=== PATIENT | female | born 1950 | race African-American/Black ===

== ENCOUNTER 2018-12-30 17:21 | Emergency (ER) | payer MEDICARE ==
--- NOTE | 2018-12-30 17:34 | Emergency Department Report ---
Blank Doc - Documentation Documentation: This is a 68-year-old female that presents with chest pain with SOB. This initial assessment/diagnostic orders/clinical plan/treatment(s) is/are subject to change based on patient's health status, clinical progression and re- assessment by fellow clinical providers in the ED. Further treatment and workup at subsequent clinical providers discretion. Patient/guardians urged not to elope from the ED as their condition may be serious if not clinically assessed and managed. Initial orders include: 1- Patient sent to MAIN ED for further evaluation and treatment 2- labs 3- EKG 4- CXR
[2018-12-30 18:01] LABS: Basophils % (Auto) 0.6 % (0.0-1.8); Eosinophils # (Auto) 0.3 K/mm3 (0.0-0.4); Eosinophils % (Auto) 4.6 % (0.0-4.3); Hematocrit 40.1 % (30.3-42.9); Hemoglobin 13.2 gm/dl (10.1-14.3); Lymphocytes # (Auto) 2.4 K/mm3 (1.2-5.4); Mean Corpuscular HGB Conc 33 % (30-34); Mean Corpuscular Volume 87 fl (79-97); Monocytes # (Auto) 0.6 K/mm3 (0.0-0.8); Monocytes % (Auto) 9.6 % (0.0-7.3); Platelet Count 317 K/mm3 (140-440); Red Cell Distribution Width 13.8 % (13.2-15.2)
[2018-12-30 18:27] LABS: INR 0.87 (0.87-1.13)
[2018-12-30 18:36] LABS: BUN/Creatinine Ratio 23; Blood Urea Nitrogen 18 mg/dL (7-17); Calcium 9.5 mg/dL (8.4-10.2); Hemolysis Index 66
--- NOTE | 2018-12-30 19:19 | XRay Report ---
PROCEDURE: XR CHEST ROUTINE 2V TECHNIQUE: PA and lateral chest radiographs were obtained. HISTORY: Chest Pain COMPARISONS: None. FINDINGS: Heart: Normal. Mediastinum/Vessels: Normal. Lungs/Pleural space: Normal. Bony thorax: No acute osseous abnormality. IMPRESSION: Normal examination. This document is electronically signed by Boni Gilbert MD., Dec 30 2018 07:17:19 PM ET
--- NOTE | 2018-12-30 20:29 | Emergency Department Report ---
ED General Adult HPI - General Chief complaint: Chest Pain Stated complaint: SOB/CHEST/BACK PAIN Time Seen by Provider: 12/30/18 17:33 Source: patient Mode of arrival: Ambulatory Limitations: No Limitations - History of Present Illness Initial comments: 68-year-old female with a history of diabetes presents with a complaint of chest pain. Patient states chest pain is in her upper chest. Patient states the chest pain radiates to the back as well. Patient complains of dizziness. Patient complains of shortness of breath since 1 PM as well. Patient denies any prior history of coronary disease. Patient denies any history of PE or DVT. Patient denies any trauma to the chest. Severity scale (0 -10): 5 - Related Data Previous Rx's Medication Instructions Recorded Last Taken Type HYDROcodone/APAP 5-325 [[place] 2 each PO Q6HR PRN #30 tablet 05/10/14 Unknown Rx 5/325] Acetaminophen/Codeine [Tylenol #3] 1 tab PO QHS #10 tablet 01/29/15 Unknown Rx Ibuprofen [Motrin] 800 mg PO BID PRN #30 tablet 01/29/15 Unknown Rx Acetaminophen/Codeine [Tylenol #3] 1 tab PO Q6H PRN #15 tab 03/18/15 Unknown Rx Ondansetron [Zofran ODT TAB] 4 mg PO Q8HR #12 tab.rapdis 03/18/15 Unknown Rx Allergies Allergy/AdvReac Type Severity Reaction Status Date / Time No Known Allergies Allergy Verified 03/18/15 10:38 ED Review of Systems ROS: Stated complaint: SOB/CHEST/BACK PAIN Other details as noted in HPI Constitutional: denies: chills, fever Eyes: denies: eye pain, eye discharge, vision change ENT: denies: ear pain, throat pain Respiratory: denies: cough, shortness of breath, wheezing Cardiovascular: chest pain Endocrine: no symptoms reported Gastrointestinal: denies: abdominal pain, nausea, diarrhea Genitourinary: denies: urgency, dysuria, discharge Musculoskeletal: denies: back pain, joint swelling, arthralgia Skin: denies: rash, lesions Neurological: denies: headache, weakness, paresthesias Psychiatric: denies: anxiety, depression Hematological/Lymphatic: denies: easy bleeding, easy bruising ED Past Medical Hx - Past Medical History Previous Medical History?: Yes Hx Diabetes: Yes ([id number]) Hx GERD: Yes Hx Psychiatric Treatment: Yes (DEPRESSION/ ANXIETY) - Surgical History Past Surgical History?: Yes Additional Surgical History: BILATERAL CATARACTS REMOVED - Social History Smoking Status: Never Smoker Substance Use Type: None - Medications Home Medications: Home Medications Medication Instructions Recorded Confirmed Last Taken Type HYDROcodone/APAP 5-325 [[place] 2 each PO Q6HR PRN #30 tablet 05/10/14 Unknown Rx 5/325] Acetaminophen/Codeine [Tylenol #3] 1 tab PO QHS #10 tablet 01/29/15 Unknown Rx Ibuprofen [Motrin] 800 mg PO BID PRN #30 tablet 01/29/15 Unknown Rx Acetaminophen/Codeine [Tylenol #3] 1 tab PO Q6H PRN #15 tab 03/18/15 Unknown Rx Ondansetron [Zofran ODT TAB] 4 mg PO Q8HR #12 tab.rapdis 03/18/15 Unknown Rx ED Physical Exam - General Limitations: No Limitations General appearance: alert, in no apparent distress - Head Head exam: Present: atraumatic, normocephalic - Eye Eye exam: Present: normal appearance - ENT ENT exam: Present: mucous membranes moist - Neck Neck exam: Present: normal inspection - Respiratory Respiratory exam: Present: normal lung sounds bilaterally. Absent: respiratory distress - Cardiovascular Cardiovascular Exam: Present: regular rate, normal rhythm. Absent: systolic murmur, diastolic murmur, rubs, gallop - GI/Abdominal GI/Abdominal exam: Present: soft, normal bowel sounds - Extremities Exam Extremities exam: Present: normal inspection - Back Exam Back exam: Present: normal inspection - Neurological Exam Neurological exam: Present: alert, oriented X3 - Psychiatric Psychiatric exam: Present: normal affect, normal mood - Skin Skin exam: Present: warm, dry, intact, normal color. Absent: rash ED Course Vital Signs 12/30/18 12/30/18 12/30/18 17:33 20:27 21:01 Temperature 98.6 F 98.1 F Pulse Rate 74 76 66 Respiratory 20 19 10 L Rate Blood Pressure 156/66 156/47 Blood Pressure 156/47 [Left] O2 Sat by Pulse 98 100 99 Oximetry 12/30/18 22:00 Temperature Pulse Rate 63 Respiratory 10 L Rate Blood Pressure 142/55 Blood Pressure [Left] O2 Sat by Pulse 99 Oximetry ED Medical Decision Making - Lab Data Result diagrams: 12/30/18 17:49 12/30/18 17:49 - EKG Data EKG shows normal: sinus rhythm Rate: normal - EKG Data When compared to previous EKG there are: no significant change - Medical Decision Making The patient's chest pain radiating to her back as well as the acute onset patient is alert to have a CT dissection protocol. Patient states that her pain has improved. Patient states she does not want this study. Patient made aware of the risk of dissection potentially leading to . Please say she is aware P patient is oriented to person place and time and has good decision- making capacity. Patient will leave AGAINST MEDICAL ADVICE. - Differential Diagnosis STEMI; NSTEMI; Anemia; Dehydration; Electrolyte Abnormality; Critical care attestation.: If time is entered above; I have spent that time in minutes in the direct care of this critically ill patient, excluding procedure time. ED Disposition Clinical Impression: Chest pain Disposition: [id number] LEFT AGAINST MED ADVICE Is pt being admited?: No Does the pt Need Aspirin: No Condition: Stable Instructions: Chest Pain (ED) Referrals: PRIMARY CARE, [Primary Care Provider] - 3-5 Days Forms: AMA Form Time of Disposition: 00:23 Print Language: KAZAKH
[2018-12-31 00:45] VITALS: BP 133/53
== END 2018-12-31 00:47 | disposition left against medical advice (07) ==
LOC: ED 17:21
DX: R07.9 Chest pain, unspecified (principal); R42 Dizziness and giddiness
CPT/HCPCS: 36415; 71046; 80048; 84484; 85025; 85610; 85730; 93005; 93010

== ENCOUNTER 2021-01-07 17:09 | Inpatient (IN) | payer MEDICARE ==
--- NOTE | 2021-01-07 18:23 | Event Note ---
ED Screening Note Date of service: 01/07/21 Time: 18:20 ED Screening Note: 77-year-old female was brought to the ER today by her daughter with complaints of abdominal pain and constipation. Daughter reports that patient has been producing only very small amount of hard stools and today when she wiped after trying have a bowel movement she noticed that there was blood in the stool. She reports associated bowel distention and generalized fatigue. She states that patient had a routine colonoscopy done December 22 with some polyps removed. Patient vital signs shows tachycardia with a heart rate of 124 and a low-grade temperature of 100.2 Daughter denies any fever at home. She denies any URI symptoms or significant cough and denies any UTI symptoms. This initial assessment/diagnostic orders/clinical plan/treatment(s) is/are subject to change based on patients health status, clinical progression and re- assessment by fellow clinical providers in the ED. Further treatment and workup at subsequent clinical providers discretion. Patient/guardian urged not to elope from the ED as their condition may be serious if not clinically assessed and managed. Initial orders include: Abdominal pain order set blood cultures and lactic acid
--- NOTE | 2021-01-07 19:02 | XRay Report ---
CHEST 2 VIEWS INDICATION / CLINICAL INFORMATION: fever. COMPARISON: Chest x-ray 12/30/2018 FINDINGS: SUPPORT DEVICES: None. HEART / MEDIASTINUM: No significant abnormality. LUNGS / PLEURA: No significant pulmonary or pleural abnormality. No pneumothorax. ADDITIONAL FINDINGS: No significant additional findings. IMPRESSION: 1. No acute findings. Signer Name: Srinivas Perez MD Signed: 01/07/2021 6:58 PM Workstation Name: [id number]
[2021-01-07 19:16] LABS: Hematocrit 44.7 % (30.3-42.9); Hemoglobin 14.8 gm/dl (10.1-14.3); Mean Corpuscular HGB Conc 33 % (30-34); Mean Corpuscular Volume 89 fl (79-97); Platelet Count 322 K/mm3 (140-440); Red Blood Count 5.06 M/mm3 (3.65-5.03); Red Cell Distribution Width 13.3 % (13.2-15.2)
[2021-01-07 19:17] LABS: Bilirubin,Urine NEG (Negative); Blood,Urine MOD (Negative); Color,Urine Yellow (Yellow); Mucus,Urine FEW /HPF; Urobilinogen,Urine < 2.0 mg/dL (<2.0)
[2021-01-07 19:28] LABS: INR 0.96 (0.87-1.13)
[2021-01-07 19:37] LABS: Alanine Aminotransferase 13 units/L (7-56); Albumin 4.6 g/dL (3.9-5); Blood Urea Nitrogen 17 mg/dL (7-17); Calcium 9.1 mg/dL (8.4-10.2); Hemolysis Index 3
[2021-01-07] MEDS ORDERED: PIPERACIL/TAZOBACTA 4.5/NS 100 4.5 GM/100 ML VIAL IV ONE ×2 (19:37→22:40)
[2021-01-07] MEDS ORDERED: SODIUM CHLORIDE 0.9% 1000 ML IV SOLN IV ONE ×2 (19:37→22:45)
[2021-01-07 19:38] LABS: BUN/Creatinine Ratio 24; Bilirubin,Direct < 0.2 mg/dL (0-0.2)
--- NOTE | 2021-01-07 19:42 | Cat Scan Report ---
CT CHEST, ABDOMEN, AND PELVIS WITHOUT CONTRAST INDICATION: fever abdominal pain. COMPARISON: None available. TECHNIQUE: All CT scans at this location are performed using CT dose reduction for ALARA by means of automated e xposure control. FINDINGS -- CHEST: Heart: Normal. Thoracic Aorta: No acute abnormality. Mediastinum and Anali: No significant abnormality. Lungs: No acute air space or interstitial disease. Pleura: No significant pleural effusion. No pneumothorax. Airways: No significant abnormality. Additional Findings: 1.7 cm left thyroid cystic nodule FINDINGS -- ABDOMEN: Liver: Normal. Gallbladder: Surgically absent Bile Ducts: Normal. Pancreas: Normal. Spleen: Normal. Adrenals: Normal. Right Kidney and Proximal Ureter: Normal. Left Kidney and Proximal Ureter: Normal. Stomach and Bowel: Moderate amount of solid stool throughout colon with fecal impaction, rectal wall thickening and mild perirectal inflammation characteristic for stercoral colitis Appendix: Normal Free Fluid: None. Lymph Nodes: No significant adenopathy. Aorta: No significant abnormality. IVC: Normal. Additional Findings: None. FINDINGS -- PELVIS: Urinary Bladder and Distal Ureters: Normal. Reproductive Organs: No acute abnormality. Appendix: Normal. Bowel: No acute abnormality. Free Fluid: None. Lymph Nodes: No significant adenopathy. Additional Findings: None. Skeletal System: Moderate degenerative changes thoracic and lumbar spine IMPRESSION: 1. Fecal impaction stercoral colitis Signer Name: Srinivas Perez MD Signed: 01/07/2021 7:38 PM Workstation Name: [id number]
[2021-01-07 20:38] LABS: Band Neutrophils # (Manual) 0.2 K/mm3; Total Cells Counted 100
[2021-01-07 20:39] LABS: Ovalocytes Rare; Platelet Estimate Consistent w Auto
--- NOTE | 2021-01-07 22:15 | Emergency Department Report ---
ED General Adult HPI - General Chief complaint: Abdominal Pain Stated complaint: CONSTIPATION, ABD PAIN, FATIGUE PUI?: No Time Seen by Provider: 01/07/21 22:15 Source: patient, family, RN notes reviewed, old records reviewed Mode of arrival: Ambulatory Limitations: Language Barrier - History of Present Illness Initial comments: The patient was evaluated in the emergency department for symptoms described in the history of present illness. He/she was evaluated in the context of the global COVID-19 pandemic, which necessitated consideration that the patient might be at risk for infection with the virus that causes COVID-19. Institutional protocols and algorithms that pertain to the evaluation of patients at risk for COVID-19 are in a state of rapid change based on information released by regulatory bodies including the CDC and federal and state organizations. These policies and algorithms were followed during the pat ient's care in the emergency department. Please note that these policies, procedures and recommendations changed on a rapid basis. During the history and physical examination, I am chaperoned and escorted by the charge nurse Morena Gill. Gastroenterology: Dr. Glen Booth; primary care doctor: Dr. 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 Patient is accompanied by her daughter, patient indicates that she would like marquita lockhart to provide history and translate. The patient is a 70-year-old Laotian speaking female, presenting to the ER with a complaint of abdominal pressure, intermittent bloody brown stool, diarrhea, sensation of constipation, not having a good bowel movement for 1 day, abdominal distention. Positive fever. No loss of taste or smell. Positive cough. No exposure to Covid. Cough is chronic. No urinary symptoms. Symptoms constant since 1 day. Pain increases with palpation. Decreases with rest. As per daughter, patient has been having brown stool with intermittently bloody tinge to it. Patient does not take systemic anticoagulation. -: Gradual, days(s) Location: abdomen Severity scale (0 -10): 4 Consistency: constant Improves with: rest Worsens with: movement, other (Palpation) - Related Data Previous Rx's Medication Instructions Recorded Last Taken Type HYDROcodone/APAP 5-325 [Sullivan 2 each PO Q6HR PRN #30 tablet 05/10/14 Unknown Rx 5/325] Acetaminophen/Codeine [Tylenol #3] 1 tab PO QHS #10 tablet 01/29/15 Unknown Rx Ibuprofen [Motrin] 800 mg PO BID PRN #30 tablet 01/29/15 Unknown Rx Acetaminophen/Codeine [Tylenol #3] 1 tab PO Q6H PRN #15 tab 03/18/15 Unknown Rx Ondansetron [Zofran ODT TAB] 4 mg PO Q8HR #12 tab.rapdis 03/18/15 Unknown Rx Allergies Allergy/AdvReac Type Severity Reaction Status Date / Time No Known Allergies Allergy Verified 03/18/15 10:38 ED Review of Systems ROS: Stated complaint: CONSTIPATION, ABD PAIN, FATIGUE Other details as noted in HPI Constitutional: fever, malaise, weakness Eyes: denies: eye discharge ENT: denies: epistaxis Respiratory: cough Cardiovascular: denies: chest pain Gastrointestinal: abdominal pain, nausea, other (Brown stool with red blood) Genitourinary: denies: dysuria Neurological: weakness Hematological/Lymphatic: denies: easy bleeding ED Past Medical Hx - Past Medical History Previous Medical History?: Yes Hx Diabetes: Yes ([id number]) Hx GERD: Yes Hx Psychiatric Treatment: Yes (DEPRESSION/ ANXIETY) - Surgical History Past Surgical History?: Yes Additional Surgical History: BILATERAL CATARACTS REMOVED, Colonoscopy 12-22-2020 - Social History Smoking Status: Never Smoker Substance Use Type: None - Medications Home Medications: Home Medications Medication Instructions Recorded Confirmed Last Taken Type HYDROcodone/APAP 5-325 [Sullivan 2 each PO Q6HR PRN #30 tablet 05/10/14 Unknown Rx 5/325] Acetaminophen/Codeine [Tylenol #3] 1 tab PO QHS #10 tablet 01/29/15 Unknown Rx Ibuprofen [Motrin] 800 mg PO BID PRN #30 tablet 01/29/15 Unknown Rx Acetaminophen/Codeine [Tylenol #3] 1 tab PO Q6H PRN #15 tab 03/18/15 Unknown Rx Ondansetron [Zofran ODT TAB] 4 mg PO Q8HR #12 tab.rapdis 03/18/15 Unknown Rx ED Physical Exam - General Limitations: Language Barrier General appearance: alert, in no apparent distress - Head Head exam: Present: atraumatic, normocephalic - Eye Eye exam: Present: normal appearance, EOMI. Absent: nystagmus - ENT ENT exam: Present: normal exam, normal orophraynx, mucous membranes moist, normal external ear exam - Neck Neck exam: Present: normal inspection, full ROM. Absent: tenderness, meningismus - Respiratory Respiratory exam: Present: decreased breath sounds. Absent: respiratory distress, rales, rhonchi, stridor - Cardiovascular Cardiovascular Exam: Present: normal rhythm, tachycardia, normal heart sounds. Absent: bradycardia, irregular rhythm, systolic murmur, diastolic murmur, rubs, gallop - GI/Abdominal GI/Abdominal exam: Present: soft, distended, tenderness. Absent: guarding, rebound, rigid, pulsatile mass - Rectal Rectal exam: Present: normal inspection, normal rectal tone, fecal impaction, other (Brown stool. Fecal impaction noted. Chaperoned by nurse Tess Gill.). Absent: bloody stool - Extremities Exam Extremities exam: Present: normal inspection, full ROM, pedal edema (1+ edema bilateral lower extremities), other (2+ pulses noted in the bilateral upper and lower extremities. There is no palpable cord. negative Homans sign. Muscular compartments are soft. The pelvis is stable.) - Back Exam Back exam: Present: normal inspection. Absent: tenderness, CVA tenderness (R), CVA tenderness (L), paraspinal tenderness, vertebral tenderness - Neurological Exam Neurological exam: Present: alert, other (No facial droop. Tongue midline. Extraocular movements intact bilaterally. Facial sensation intact to light touch in V1, V2, V3 distribution bilaterally. 5 and a 5 strength in 4 extremities. Sensation intact to light touch in 4 extremities.) - Psychiatric Psychiatric exam: Present: anxious - Skin Skin exam: Present: warm, dry, intact, normal color. Absent: rash ED Course Vital Signs 01/07/21 01/07/21 18:08 22:30 Temperature 100.2 F H Pulse Rate 124 H 98 H Respiratory 20 10 L Rate Blood Pressure 136/75 Blood Pressure 145/77 [Right] O2 Sat by Pulse 97 99 Oximetry - Rectal Disimpaction Consent Obtained: verbal consent (Chaperoned by warehouse shipping receiving clerk Morena Gill) Time Out Performed: Yes Indication: fecal impaction Procedural Sedation: No Sedation/Analgesia: none Technique: manual disimpaction with (Copious lubricant applied) Result: unable to disimpact (Partial relief, but not complete relief) Complications: none Patient Tolerated Procedure: well ED Medical Decision Making - Lab Data Result diagrams: 01/07/21 18:41 01/07/21 18:41 Vital Signs 01/07/21 01/07/21 18:08 22:30 Temperature 100.2 F H Pulse Rate 124 H 98 H Respiratory 20 10 L Rate Blood Pressure 136/75 Blood Pressure 145/77 [Right] O2 Sat by Pulse 97 99 Oximetry Lab Results 01/07/21 01/07/21 01/07/21 Range/Units 18:41 18:41 18:41 WBC 18.3 H (4.5-11.0) K/mm3 RBC 5.06 H (3.65-5.03) M/mm3 Hgb 14.8 H (10.1-14.3) gm/dl Hct 44.7 H (30.3-42.9) % MCV 89 (79-97) fl MCH 29 (28-32) pg MCHC 33 (30-34) % RDW 13.3 (13.2-15.2) % Plt Count 322 (140-440) K/mm3 Add Manual Diff Complete Total Counted 100 Seg Neutrophils % Pipe Puller Seg Neuts % (Manual) 84.0 H (40.0-70.0) % Band Neutrophils % 1.0 % Lymphocytes % (Manual) 5.0 L (13.4-35.0) % Monocytes % (Manual) 10.0 H (0.0-7.3) % Nucleated RBC % Not Reportable Seg Neutrophils # Man 15.4 H (1.8-7.7) K/mm3 Band Neutrophils # 0.2 K/mm3 Lymphocytes # (Manual) 0.9 L (1.2-5.4) K/mm3 Abs React Lymphs (Man) 0.0 K/mm3 Monocytes # (Manual) 1.8 H (0.0-0.8) K/mm3 Eosinophils # (Manual) 0.0 (0.0-0.4) K/mm3 Basophils # (Manual) 0.0 (0.0-0.1) K/mm3 Metamyelocytes # 0.0 K/mm3 Myelocytes # 0.0 K/mm3 Promyelocytes # 0.0 K/mm3 Blast Cells # 0.0 K/mm3 WBC Morphology Not Reportable Hypersegmented Neuts Not Reportable Hyposegmented Neuts Not Reportable Hypogranular Neuts Not Reportable Smudge Cells Not Reportable Toxic Granulation Not Reportable Toxic Vacuolation Not Reportable Dohle Bodies Not Reportable Pelger-Huet Anomaly Not Reportable Tonya Rods Not Reportable Platelet Estimate Consistent w auto Clumped Platelets Not Reportable Plt Clumps, EDTA Not Reportable Large Platelets Not Reportable Giant Platelets Not Reportable Platelet Satelliting Not Reportable Plt Morphology Comment Not Reportable RBC Morphology Not Reportable Dimorphic RBCs Not Reportable Polychromasia Not Reportable Hypochromasia Not Reportable Poikilocytosis Not Reportable Anisocytosis Not Reportable Microcytosis Not Reportable Macrocytosis Not Reportable Spherocytes Not Reportable Pappenheimer Bodies Not Reportable Sickle Cells Not Reportable Target Cells Not Reportable Tear Drop Cells Not Reportable Ovalocytes Rare Helmet Cells Not Reportable [place] Bodies Not Reportable Commercial [place] Rings Not Reportable [place] Cells Not Reportable Bite Cells Not Reportable Crenated Cell Not Reportable Elliptocytes Not Reportable Acanthocytes (Spur) Not Reportable Rouleaux Not Reportable Hemoglobin C Crystals Not Reportable Schistocytes Not Reportable Malaria parasites Not Reportable Sami Bodies Not Reportable Hem Pathologist Commnt No PT 12.6 (12.2-14.9) Sec. INR 0.96 (0.87-1.13) Sodium 135 L (137-145) mmol/L Potassium 4.2 (3.6-5.0) mmol/L Chloride 99.1 (98-107) mmol/L Carbon Dioxide 23 (22-30) mmol/L Anion Gap 17 mmol/L BUN 17 (7-17) mg/dL Creatinine 0.7 (0.6-1.2) mg/dL Estimated GFR > 60 ml/min BUN/Creatinine Ratio 24 % Glucose 173 H (65-100) mg/dL Lactic Acid (0.7-2.0) mmol/L Calcium 9.1 (8.4-10.2) mg/dL Total Bilirubin 0.90 (0.1-1.2) mg/dL Direct Bilirubin < 0.2 (0-0.2) mg/dL Indirect Bilirubin 0.7 mg/dL AST 16 (5-40) units/L ALT 13 (7-56) units/L Alkaline Phosphatase 103 (35-129) units/L Total Protein 7.7 (6.3-8.2) g/dL Albumin 4.6 (3.9-5) g/dL Albumin/Globulin Ratio 1.5 % Lipase 39 (13-60) units/L Urine Color (Yellow) Urine Turbidity (Clear) Urine pH (5.0-7.0) Ur Specific [place] (1.003-1.030) Urine Protein (Negative) mg/dL Urine Glucose (UA) (Negative) mg/dL Urine Ketones (Negative) mg/dL Urine Blood (Negative) Urine Nitrite (Negative) Urine Bilirubin (Negative) Urine Urobilinogen (<2.0) mg/dL Ur Leukocyte Esterase (Negative) Urine WBC (Auto) (0.0-6.0) /HPF Urine RBC (Auto) (0.0-6.0) /HPF U Epithel Cells (Auto) (0-13.0) /HPF Urine Mucus /HPF 01/07/21 01/07/21 Range/Units 18:41 Unknown WBC (4.5-11.0) K/mm3 RBC (3.65-5.03) M/mm3 Hgb (10.1-14.3) gm/dl Hct (30.3-42.9) % MCV (79-97) fl MCH (28-32) pg MCHC (30-34) % RDW (13.2-15.2) % Plt Count (140-440) K/mm3 Add Manual Diff Total Counted Seg Neutrophils % Seg Neuts % (Manual) (40.0-70.0) % Band Neutrophils % % Lymphocytes % (Manual) (13.4-35.0) % Monocytes % (Manual) (0.0-7.3) % Nucleated RBC % Seg Neutrophils # Man (1.8-7.7) K/mm3 Band Neutrophils # K/mm3 Lymphocytes # (Manual) (1.2-5.4) K/mm3 Abs React Lymphs (Man) K/mm3 Monocytes # (Manual) (0.0-0.8) K/mm3 Eosinophils # (Manual) (0.0-0.4) K/mm3 Basophils # (Manual) (0.0-0.1) K/mm3 Metamyelocytes # K/mm3 Myelocytes # K/mm3 Promyelocytes # K/mm3 Blast Cells # K/mm3 WBC Morphology Hypersegmented Neuts Hyposegmented Neuts Hypogranular Neuts Smudge Cells Toxic Granulation Toxic Vacuolation Dohle Bodies Pelger-Huet Anomaly Tonya Rods Platelet Estimate Clumped Platelets Plt Clumps, EDTA Large Platelets Giant Platelets Platelet Satelliting Plt Morphology Comment RBC Morphology Dimorphic RBCs Polychromasia Hypochromasia Poikilocytosis Anisocytosis Microcytosis Macrocytosis Spherocytes Pappenheimer Bodies Sickle Cells Target Cells Tear Drop Cells Ovalocytes Helmet Cells Winter-[place] Bodies Commercial [place] Rings Brady Cells Bite Cells Crenated Cell Elliptocytes Acanthocytes (Spur) Rouleaux Hemoglobin C Crystals Schistocytes Malaria parasites Sami Bodies Hem Pathologist Commnt PT (12.2-14.9) Sec. INR (0.87-1.13) Sodium (137-145) mmol/L Potassium (3.6-5.0) mmol/L Chloride (98-107) mmol/L Carbon Dioxide (22-30) mmol/L Anion Gap mmol/L BUN (7-17) mg/dL Creatinine (0.6-1.2) mg/dL Estimated GFR ml/min BUN/Creatinine Ratio % Glucose (65-100) mg/dL Lactic Acid 2.20 H* (0.7-2.0) mmol/L Calcium (8.4-10.2) mg/dL Total Bilirubin (0.1-1.2) mg/dL Direct Bilirubin (0-0.2) mg/dL Indirect Bilirubin mg/dL AST (5-40) units/L ALT (7-56) units/L Alkaline Phosphatase (35-129) units/L Total Protein (6.3-8.2) g/dL Albumin (3.9-5) g/dL Albumin/Globulin Ratio % Lipase (13-60) units/L Urine Color Yellow (Yellow) Urine Turbidity Clear (Clear) Urine pH 5.0 (5.0-7.0) Ur Specific [place] 1.023 (1.003-1.030) Urine Protein 30 mg/dl (Negative) mg/dL Urine Glucose (UA) 50 (Negative) mg/dL Urine Ketones Neg (Negative) mg/dL Urine Blood Mod (Negative) Urine Nitrite Neg (Negative) Urine Bilirubin Neg (Negative) Urine Urobilinogen < 2.0 (<2.0) mg/dL Ur Leukocyte Esterase Tr (Negative) Urine WBC (Auto) 3.0 (0.0-6.0) /HPF Urine RBC (Auto) 24.0 (0.0-6.0) /HPF U Epithel Cells (Auto) 1.0 (0-13.0) /HPF Urine Mucus Few /HPF - EKG Data -: EKG Interpreted by Tx EKG shows normal: sinus rhythm Rate: tachycardia - EKG Data 01/07/21 22:43 EKG interpreted at 19: 05 Sinus rhythm, tachycardia, rate 106 bpm, motion artifact, QTC 441 ms. Abnormal EKG. Not a STEMI. - Radiology Data Radiology results: pending, report reviewed, image reviewed [facility] [address] [place] [address] Cat Scan Report Signed Patient: JOSE LEAL MR#: [id number] : 1950 Acct:[id number] Age/Sex: 70 / F ADM Date: 01/07/21 Loc: ED Attending Dr: Ordering Physician: Shira Jimenez MD Date of Service: 01/07/21 Procedure(s): CT chest wo con Accession Number(s): [id number] cc: Shira Jimenez MD CT CHEST, ABDOMEN, AND PELVIS WITHOUT CONTRAST INDICATION: fever abdominal pain. COMPARISON: None available. TECHNIQUE: All CT scans at this location are performed using CT dose reduction for ALARA by means of automated exposure control. FINDINGS -- CHEST: Heart: Normal. Thoracic Aorta: No acute abnormality. Mediastinum and Anali: No significant abnormality. Lungs: No acute air space or interstitial disease. Pleura: No significant pleural effusion. No pneumothorax. Airways: No significant abnormality. Additional Findings: 1.7 cm left thyroid cystic nodule FINDINGS -- ABDOMEN: Liver: Normal. Gallbladder: Surgically absent Bile Ducts: Normal. Pancreas: Normal. Spleen: Normal. Adrenals: Normal. Right Kidney and Proximal Ureter: Normal. Left Kidney and Proximal Ureter: Normal. Stomach and Bowel: Moderate amount of solid stool throughout colon with fecal impaction, rectal wall thickening and mild perirectal inflammation characteristic for stercoral colitis Appendix: Normal Free Fluid: None. Lymph Nodes: No significant adenopa thy. Aorta: No significant abnormality. IVC: Normal. Additional Findings: None. FINDINGS -- PELVIS: Urinary Bladder and Distal Ureters: Normal. Reproductive Organs: No acute abnormality. Appendix: Normal. Bowel: No acute abnormality. Free Fluid: None. Lymph Nodes: No significant adenopathy. Additional Findings: None. Skeletal System: Moderate degenerative changes thoracic and lumbar spine IMPRESSION: 1. Fecal impaction stercoral colitis Signer Name: Srinivas Perez MD Signed: 01/07/2021 7:38 PM Workstation Name: [id number] Transcribed By: MONAE Dictated By: MD Charis Willett Authenticated By: Srinivas Perez MD Signed Date/Time: 01/07/211937 DD/ 32 - Medical Decision Making Differential diagnosis, including but not limited to: Constipation, impaction, colitis, diverticulitis, obstruction, pneumonia, urinary tract infection, bacteremia, viremia Assessment and plan: 70-year-old female with a complaint of abdominal pain, constipation, intermittent diarrhea, with bloody stool, found to have low-grade temperature, tachycardia, leukocytosis, lactic acidosis, ruling in for systemic inflammatory response syndrome. Manual disimpaction attempted by myself, unsuccessful. Patient and her daughter have given consent for admission to this hospital for supportive care, IV fluids, analgesia, antibiotics. Patient does not have acute respiratory symptoms at this time, noncontrast CT scan of the chest was obtained prior to my personal evaluation of this patient. CT scan of the abdomen pelvis demonstrates fecal impaction with sterocolitis This patient does not have any bleeding on my rectal examination, she had brown stool on her disimpaction, she also had a colonoscopy within the past month, which simply demonstrated polyps but no other significant findings. Patient will be given lactulose, and soapsuds enema. She will receive pain medication, nausea medication, fluids, Tylenol and empiric antibiotics. I suspect that leukocytosis is likely a stress reaction. I suspect that lactic acidosis is likely a type II/type B lactic acidosis. I suspect that the history of bloody diarrhea is likely secondary to epithelial sloughing from the GI tract, likely secondary to fecal impaction. Hospital physician, Dr. Marie, will admit this patient to the medical service. He request GI consultation, as a courtesy, I have ordered consultation in the computer, but I do not have an emergent clinical question for GI at this time, will therefore defer to internal medicine/admitting team to follow-up for recommendations and/or discussion. Discussed plan of care with patient's daughter, who verbalized understanding, who is amenable to this plan of care, and conveyed this recommendation to the patient, who is also in agreement with this plan. Critical care attestation.: If time is entered above; I have spent that time in minutes in the direct care of this critically ill patient, excluding procedure time. ED Disposition Clinical Impression: Acute abdominal pain, Systemic inflammatory response syndrome (SIRS), Fecal impaction, History of GI bleed Disposition: 09 OP ADMIT IP TO THIS HOSP Is pt being admited?: Yes Does the pt Need Aspirin: No Condition: Good Instructions: Abdominal Pain (ED)
[2021-01-07] MEDS ORDERED: MORPHINE 2 MG/1 ML INJ IV ONE (22:28)
[2021-01-07] MEDS ORDERED: ONDANSETRON 4 MG/2 ML INJ IV ONE (22:28)
[2021-01-07] MEDS ORDERED: LACTULOSE 20 GM/30 ML ORAL LIQD PO ONE (22:28)
[2021-01-07] MEDS ORDERED: ACETAMINOPHEN 325 MG TAB PO ONE (22:28)
[2021-01-07] MEDS ORDERED: ACETAMINOPHEN 325 MG TAB PO PRN (23:43)
[2021-01-07] MEDS ORDERED: IBUPROFEN 800 MG TAB PO PRN (23:43)
[2021-01-07] MEDS ORDERED: MORPHINE 2 MG/1 ML INJ IV PRN (23:43)
[2021-01-07] MEDS ORDERED: ONDANSETRON 4 MG/2 ML INJ IV PRN (23:43)
[2021-01-07] MEDS ORDERED: ALBUTEROL 2.5 MG/3 ML NEBU IH PRN (23:43)
[2021-01-07] MEDS ORDERED: D5W/0.45% NACL 1,000 ML IV SCH (23:45)
[2021-01-07] MEDS ORDERED: hydrALAZINE 20 MG/1 ML INJ IV PRN (23:46)
--- NOTE | 2021-01-07 23:53 | History and Physical Report ---
History of Present Illness Date of examination: 01/07/21 Date of admission: 01/07/21 22:49 Chief complaint: Abdominal pain History of present illness: 70-year-old Laotian speaking female with past medical history of GERD depression diabetes and history of colonoscopy on December 22 was brought to the emergency room with a complaint of abdominal pressure, intermittent bloody brown stool, diarrhea, sensation of constipation, not having a good bowel movement for 1 day, abdominal distention. Positive fever. No loss of taste or smell. Positive cough. No exposure to Covid. Cough is chronic. No urinary symptoms. Symptoms constant since 1 day. Pain increases with palpation. Decreases with rest. In the emergency room patient WBC is 18.3. Hemoglobin 14.8 and hematocrit 44.7, lactic acid is 2.20. CT scan of the abdomen showed fecal impaction stercoral colitis Past History Past Medical History: diabetes, GERD, other (Depression) Medications and Allergies Allergies Allergy/AdvReac Type Severity Reaction Status Date / Time No Known Allergies Allergy Verified 03/18/15 10:38 Home Medications Medication Instructions Recorded Confirmed Last Taken Type HYDROcodone/APAP 5-325 [[place] 2 each PO Q6HR PRN #30 tablet 05/10/14 Unknown Rx 5/325] Acetaminophen/Codeine [Tylenol #3] 1 tab PO QHS #10 tablet 01/29/15 Unknown Rx Ibuprofen [Motrin] 800 mg PO BID PRN #30 tablet 01/29/15 Unknown Rx Acetaminophen/Codeine [Tylenol #3] 1 tab PO Q6H PRN #15 tab 03/18/15 Unknown Rx Ondansetron [Zofran ODT TAB] 4 mg PO Q8HR #12 tab.rapdis 03/18/15 Unknown Rx Active Meds: Active Medications Acetaminophen (Acetaminophen 325 Mg Tab) 650 mg PO Q4H PRN PRN Reason: Pain MILD(1-3)/Fever >100.5/TOMAS Albuterol (Albuterol 2.5 Mg/3 Ml Nebu) 2.5 mg IH Q3HRT PRN PRN Reason: Shortness Of Breath Albuterol/Ipratropium (Ipratropium/Albuterol Sulfate 3 Ml Ampul.Neb) 1 ampul IH Q6HRT LUZ MARINA Hydralazine HCl (Hydralazine 20 Mg/1 Ml Inj) 10 mg IV Q6H PRN PRN Reason: htn Dextrose/Sodium Chloride (D5/0.45ns) 1,000 mls @ 100 mls/hr IV DIRECT LUZ MARINA Piperacillin Sod/Tazobactam Sod (Zosyn/Ns 4.5gm/100ml) 4.5 gm in 100 mls @ 200 mls/hr IV Q8H LUZ MARINA; Protocol Metronidazole (Flagyl 500 Mg/100 Ml) 500 mg in 100 mls @ 100 mls/hr IV Q8H LUZ MARINA; Protocol Ibuprofen (Ibuprofen 800 Mg Tab) 800 mg PO BID PRN PRN Reason: PAIN Morphine Sulfate (Morphine 2 Mg/1 Ml Inj) 2 mg IV Q4H PRN PRN Reason: Pain, Moderate (4-6) Ondansetron HCl (Ondansetron 4 Mg/2 Ml Inj) 4 mg IV Q8H PRN PRN Reason: Nausea And Vomiting Pantoprazole Sodium (Pantoprazole 40 Mg Inj) 40 mg IV BID LUZ MARINA Sodium Chloride (Sodium Chloride 0.9% 10 Ml Flush Syringe) 10 ml IV BID LUZ MARINA Sodium Chloride (Sodium Chloride 0.9% 10 Ml Flush Syringe) 10 ml IV PRN PRN PRN Reason: LINE FLUSH Review of Systems Constitutional: fever Gastrointestinal: abdominal pain, diarrhea, constipation, BRBPR Exam - Constitutional Vitals: Temp Pulse Resp BP Pulse Ox 99.1 F 98 H 10 L 136/75 99 01/07/21 23:43 01/07/21 22:30 01/07/21 22:30 01/07/21 22:30 01/07/21 22:30 General appearance: Present: no acute distress, well-nourished - EENT Eyes: Present: PERRL ENT: hearing intact, clear oral mucosa - Neck Neck: Present: supple, normal ROM - Respiratory Respiratory effort: normal Respiratory: bilateral: CTA - Cardiovascular Heart Sounds: Present: S1 & S2. Absent: rub, click - Extremities Extremities: pulses symmetrical, No edema Peripheral Pulses: within normal limits - Abdominal General gastrointestinal: Present: soft, tender, distended, normal bowel sounds Female genitourinary: Present: normal - Integumentary Integumentary: Present: clear, warm, dry - Musculoskeletal Musculoskeletal: gait normal, strength equal bilaterally - Psychiatric Psychiatric: appropriate mood/affect, intact judgment & insight - Neurologic Neurologic: CNII-XII intact, moves all extremities Results - Labs CBC & Chem 7: 01/07/21 18:41 01/07/21 18:41 Labs: Laboratory Last Values WBC 18.3 K/mm3 (4.5-11.0) H 01/07/21 18:41 RBC 5.06 M/mm3 (3.65-5.03) H 01/07/21 18:41 Hgb 14.8 gm/dl (10.1-14.3) H 01/07/21 18:41 Hct 44.7 % (30.3-42.9) H 01/07/21 18:41 MCV 89 fl (79-97) 01/07/21 18:41 MCH 29 pg (28-32) 01/07/21 18:41 MCHC 33 % (30-34) 01/07/21 18:41 RDW 13.3 % (13.2-15.2) 01/07/21 18:41 Plt Count 322 K/mm3 (140-440) 01/07/21 18:41 Add Manual Diff Complete 01/07/21 18:41 Total Counted 100 01/07/21 18:41 Seg Neutrophils % Hazardous Substances Engineer 01/07/21 18:41 Seg Neuts % (Manual) 84.0 % (40.0-70.0) H 01/07/21 18:41 Band Neutrophils % 1.0 % 01/07/21 18:41 Lymphocytes % (Manual) 5.0 % (13.4-35.0) L 01/07/21 18:41 Monocytes % (Manual) 10.0 % (0.0-7.3) H 01/07/21 18:41 Nucleated RBC % Not Reportable 01/07/21 18:41 Seg Neutrophils # Man 15.4 K/mm3 (1.8-7.7) H 01/07/21 18:41 Band Neutrophils # 0.2 K/mm3 01/07/21 18:41 Lymphocytes # (Manual) 0.9 K/mm3 (1.2-5.4) L 01/07/21 18:41 Abs React Lymphs (Man) 0.0 K/mm3 01/07/21 18:41 Monocytes # (Manual) 1.8 K/mm3 (0.0-0.8) H 01/07/21 18:41 Eosinophils # (Manual) 0.0 K/mm3 (0.0-0.4) 01/07/21 18:41 Basophils # (Manual) 0.0 K/mm3 (0.0-0.1) 01/07/21 18:41 Metamyelocytes # 0.0 K/mm3 01/07/21 18:41 Myelocytes # 0.0 K/mm3 01/07/21 18:41 Promyelocytes # 0.0 K/mm3 01/07/21 18:41 Blast Cells # 0.0 K/mm3 01/07/21 18:41 WBC Morphology Not Reportable 01/07/21 18:41 Hypersegmented Neuts Not Reportable 01/07/21 18:41 Hyposegmented Neuts Not Reportable 01/07/21 18:41 Hypogranular Neuts Not Reportable 01/07/21 18:41 Smudge Cells Not Reportable 01/07/21 18:41 Toxic Granulation Not Reportable 01/07/21 18:41 Toxic Vacuolation Not Reportable 01/07/21 18:41 Dohle Bodies Not Reportable 01/07/21 18:41 Pelger-Huet Anomaly Not Reportable 01/07/21 18:41 Tonya Rods Not Reportable 01/07/21 18:41 Platelet Estimate Consistent w auto 01/07/21 18:41 Clumped Platelets Not Reportable 01/07/21 18:41 Plt Clumps, EDTA Not Reportable 01/07/21 18:41 Large Platelets Not Reportable 01/07/21 18:41 Giant Platelets Not Reportable 01/07/21 18:41 Platelet Satelliting Not Reportable 01/07/21 18:41 Plt Morphology Comment Not Reportable 01/07/21 18:41 RBC Morphology Not Reportable 01/07/21 18:41 Dimorphic RBCs Not Reportable 01/07/21 18:41 Polychromasia Not Reportable 01/07/21 18:41 Hypochromasia Not Reportable 01/07/21 18:41 Poikilocytosis Not Reportable 01/07/21 18:41 Anisocytosis Not Reportable 01/07/21 18:41 Microcytosis Not Reportable 01/07/21 18:41 Macrocytosis Not Reportable 01/07/21 18:41 Spherocytes Not Reportable 01/07/21 18:41 Pappenheimer Bodies Not Reportable 01/07/21 18:41 Sickle Cells Not Reportable 01/07/21 18:41 Target Cells Not Reportable 01/07/21 18:41 Tear Drop Cells Not Reportable 01/07/21 18:41 Ovalocytes Rare 01/07/21 18:41 Helmet Cells Not Reportable 01/07/21 18:41 [place] Bodies Not Reportable 01/07/21 18:41 [place] Rings Not Reportable 01/07/21 18:41 [place] Cells Not Reportable 01/07/21 18:41 Bite Cells Not Reportable 01/07/21 18:41 Crenated Cell Not Reportable 01/07/21 18:41 Elliptocytes Not Reportable 01/07/21 18:41 Acanthocytes (Spur) Not Reportable 01/07/21 18:41 Rouleaux Not Reportable 01/07/21 18:41 Hemoglobin C Crystals Not Reportable 01/07/21 18:41 Schistocytes Not Reportable 01/07/21 18:41 Malaria parasites Not Reportable 01/07/21 18:41 Sami Bodies Not Reportable 01/07/21 18:41 Hem Pathologist Commnt No 01/07/21 18:41 PT 12.6 Sec. (12.2-14.9) 01/07/21 18:41 INR 0.96 (0.87-1.13) 01/07/21 18:41 Sodium 135 mmol/L (137-145) L 01/07/21 18:41 Potassium 4.2 mmol/L (3.6-5.0) 01/07/21 18:41 Chloride 99.1 mmol/L (98-107) 01/07/21 18:41 Carbon Dioxide 23 mmol/L (22-30) 01/07/21 18:41 Anion Gap 17 mmol/L 01/07/21 18:41 BUN 17 mg/dL (7-17) 01/07/21 18:41 Creatinine 0.7 mg/dL (0.6-1.2) 01/07/21 18:41 Estimated GFR > 60 ml/min 01/07/21 18:41 BUN/Creatinine Ratio 24 % 01/07/21 18:41 Glucose 173 mg/dL (65-100) H 01/07/21 18:41 Lactic Acid 2.20 mmol/L (0.7-2.0) H* 01/07/21 18:41 Calcium 9.1 mg/dL (8.4-10.2) 01/07/21 18:41 Total Bilirubin 0.90 mg/dL (0.1-1.2) 01/07/21 18:41 Direct Bilirubin < 0.2 mg/dL (0-0.2) 01/07/21 18:41 Indirect Bilirubin 0.7 mg/dL 01/07/21 18:41 AST 16 units/L (5-40) 01/07/21 18:41 ALT 13 units/L (7-56) 01/07/21 18:41 Alkaline Phosphatase 103 units/L (35-129) 01/07/21 18:41 Total Protein 7.7 g/dL (6.3-8.2) 01/07/21 18:41 Albumin 4.6 g/dL (3.9-5) 01/07/21 18:41 Albumin/Globulin Ratio 1.5 % 01/07/21 18:41 Lipase 39 units/L (13-60) 01/07/21 18:41 Urine Color Yellow (Yellow) 01/07/21 Unknown Urine Turbidity Clear (Clear) 01/07/21 Unknown Urine pH 5.0 (5.0-7.0) 01/07/21 Unknown Ur Specific [place] 1.023 (1.003-1.030) 01/07/21 Unknown Urine Protein 30 mg/dl mg/dL (Negative) 01/07/21 Unknown Urine Glucose (UA) 50 mg/dL (Negative) 01/07/21 Unknown Urine Ketones Neg mg/dL (Negative) 01/07/21 Unknown Urine Blood Mod (Negative) 01/07/21 Unknown Urine Nitrite Neg (Negative) 01/07/21 Unknown Urine Bilirubin Neg (Negative) 01/07/21 Unknown Urine Urobilinogen < 2.0 mg/dL (<2.0) 01/07/21 Unknown Ur Leukocyte Esterase Tr (Negative) 01/07/21 Unknown Urine WBC (Auto) 3.0 /HPF (0.0-6.0) 01/07/21 Unknown Urine RBC (Auto) 24.0 /HPF (0.0-6.0) 01/07/21 Unknown U Epithel Cells (Auto) 1.0 /HPF (0-13.0) 01/07/21 Unknown Urine Mucus Few /HPF 01/07/21 Unknown Microbiology: Microbiology 01/07/21 18:41 Peripheral/Venous Blood Culture - Preliminary Culture in Progress 01/07/21 18:35 Peripheral/Venous Blood Culture - Preliminary Culture in Progress - Imaging and Cardiology CT scan - abdomen: report reviewed Assessment and Plan VTE prophylaxis?: Mechanical Plan of care discussed with patient/family: Yes - Patient Problems (1) Acute abdominal pain Current Visit: Yes Status: Acute Plan to address problem: Admit the patient to the medical telemetry. N.p.o. IV fluid normal saline at the rate of 100 cc/h. Protonix 40 mg IV every 12 hours. Morphine 2 mg IV every 4 hours as needed. Will consult GI for evaluation. Recheck CBC BMP in the morning (2) History of GI bleed Current Visit: Yes Status: Acute Plan to address problem: Protonix 40 mg IV every 12 hours. We will do serial H&H. will consult GI for evaluation. Recheck CBC BMP in the morning (3) Fecal impaction Current Visit: Yes Status: Acute Plan to address problem: MiraLAX 17 g p.o. daily. Will consult GI for the impaction. If needed will consult surgery in the morning (4) Systemic inflammatory response syndrome (SIRS) Current Visit: Yes Status: Acute Plan to address problem: We will put the patient on Zosyn 4.5 g IV every 8 hours. Flagyl 500 mg IV every 8 hours. We will recheck the lactic acid. We do the blood culture. We will recheck CBC BMP in the morning (5) Diabetes 1.5, managed as type 2 Current Visit: Yes Status: Acute Plan to address problem: We will put the patient on Humalog sliding scale with Accu-Chek is every 6 hours moderate dose coverage. Will consult diet education. Repeat BMP in the morning (6) DVT prophylaxis Current Visit: Yes Status: Acute Plan to address problem: SCD for DVT prophylaxis. Protonix 40 mils IV every 12 hours for GI prophylaxis. Patient is a full code
[2021-01-07] MEDS ORDERED: DEXTROSE 50% IN WATER (25GM) 50 ML SYRINGE IV PRN (23:59)
[2021-01-08] MEDS: metroNIDAZOLE/NS 500 MG/100 ML 500 MG/100 ML BAG IV SCH ×2 (00:11→08:00)
[2021-01-08] MEDS: INSULIN LISPRO 100 UNIT/ML SUB-Q SCH ×4 (00:43→17:27)
[2021-01-08] MEDS: SODIUM CHLORIDE 0.9% 1000 ML 1,000 ML IV SCH ×2 (03:43→16:20)
[2021-01-08] MEDS: IPRATROPIUM/ALBUTEROL SULFATE 3 ML AMPUL.NEB IH SCH ×5 (04:53→21:15)
[2021-01-08] MEDS ORDERED: PIPERACIL/TAZOBACTA 4.5/NS 100 4.5 GM/100 ML VIAL IV SCH (06:00)
[2021-01-08 06:29] LABS: Basophils % (Auto) 0.3 % (0.0-1.8); Eosinophils # (Auto) 0.1 K/mm3 (0.0-0.4); Eosinophils % (Auto) 0.5 % (0.0-4.3); Hematocrit 36.1 % (30.3-42.9); Hemoglobin 11.9 gm/dl (10.1-14.3); Lymphocytes # (Auto) 2.3 K/mm3 (1.2-5.4); Lymphocytes % (Auto) 19.7 % (13.4-35.0); Mean Corpuscular HGB Conc 33 % (30-34); Mean Corpuscular Volume 88 fl (79-97); Monocytes # (Auto) 0.8 K/mm3 (0.0-0.8); Platelet Count 270 K/mm3 (140-440); Red Cell Distribution Width 13.1 % (13.2-15.2)
[2021-01-08 06:32] LABS: Blood Urea Nitrogen 11 mg/dL (7-17); Calcium 7.8 mg/dL (8.4-10.2); Hemolysis Index 5
[2021-01-08 06:36] LABS: BUN/Creatinine Ratio 16
[2021-01-08] MEDS ORDERED: PANTOPRAZOLE 40 MG INJ IV SCH (10:00)
--- NOTE | 2021-01-08 11:30 | Progress Note ---
Subjective Date of service: 01/08/21 Interval history: Chief complaint: Abdominal pain History of present illness: 70-year-old Laotian speaking female with past medical history of GERD depression diabetes and history of colonoscopy on December 22 was brought to the emergency room with a complaint of abdominal pressure, intermittent bloody brown stool, diarrhea, sensation of constipation, not having a good bowel movement for 1 day, abdominal distention. Positive fever. No loss of taste or smell. Positive cough. No exposure to Covid. Cough is chronic. No urinary symptoms. Symptoms constant since 1 day. Pain increases with palpation. Decreases with rest. In the emergency room patient WBC is 18.3. Hemoglobin 14.8 and hematocrit 44.7, lactic acid is 2.20. CT scan of the abdomen showed fecal impaction stercoral colitis 01/08 patient is awake and alert. No apparent distress. She is non-Equatorial [place] speaking Laotian female. CT of the abdomen and pelvis and lab results reviewed Assessment and plan Stercoral colitis/fecal impaction CT of the abdomen and pelvis results reviewed Had a curbside discussion with GI We will start the patient on GoLYTELY and will stop GoLYTELY once patient has good bowel movement Rectal bleed Likely secondary to #1 No active bleeding Monitor hemoglobin Empiric PPI GI consulted Leukocytosis Likely reactive WBC count dropped from 18.3-11.7 this morning No evidence of infection We will discontinue IV antibiotic Type 2 diabetes Reviewed home medications She is not on any medication for diabetes Check A1c Continue insulin sliding scale coverage Objective - Constitutional Vitals: Vital Signs - 12hr 01/07/21 01/07/21 01/07/21 23:30 23:40 23:43 Temperature 99.1 F Pulse Rate 89 87 Pulse Rate [ Anterior Bilateral Throughout] Pulse Rate [ Left Radial] Pulse Rate [ Right Radial] Respiratory 16 14 Rate Respiratory Rate [Anterior Bilateral Throughout] Blood Pressure 136/75 136/75 Blood Pressure [Right] O2 Sat by Pulse 100 99 Oximetry 01/07/21 01/08/21 01/08/21 23:50 00:00 00:10 Temperature Pulse Rate 89 86 85 Pulse Rate [ Anterior Bilateral Throughout] Pulse Rate [ Left Radial] Pulse Rate [ Right Radial] Respiratory 14 20 13 Rate Respiratory Rate [Anterior Bilateral Throughout] Blood Pressure 136/75 124/54 124/54 Blood Pressure [Right] O2 Sat by Pulse 99 97 97 Oximetry 01/08/21 01/08/21 01/08/21 00:20 00:30 00:40 Temperature Pulse Rate 83 86 83 Pulse Rate [ Anterior Bilateral Throughout] Pulse Rate [ Left Radial] Pulse Rate [ Right Radial] Respiratory 15 12 Rate Respiratory Rate [Anterior Bilateral Throughout] Blood Pressure 124/54 124/54 Blood Pressure [Right] O2 Sat by Pulse 99 100 Oximetry 01/08/21 01/08/21 01/08/21 00:46 04:53 04:55 Temperature 98.6 F Pulse Rate 83 68 Pulse Rate [ 78 Anterior Bilateral Throughout] Pulse Rate [ Left Radial] Pulse Rate [ Right Radial] Respiratory 13 20 Rate Respiratory 14 Rate [Anterior Bilateral Throughout] Blood Pressure 124/54 Blood Pressure 114/68 [Right] O2 Sat by Pulse 100 96 Oximetry 01/08/21 01/08/21 08:22 08:40 Temperature Pulse Rate Pulse Rate [ 77 Anterior Bilateral Throughout] Pulse Rate [ 89 Left Radial] Pulse Rate [ 89 Right Radial] Respiratory 19 Rate Respiratory 18 Rate [Anterior Bilateral Throughout] Blood Pressure Blood Pressure [Right] O2 Sat by Pulse Oximetry General appearance: Present: no acute distress, well-nourished - EENT Eyes: PERRL, EOM intact ENT: hearing intact - Neck Neck: supple, normal ROM, no masses or JVD - Respiratory Respiratory effort: normal Respiratory: bilateral: CTA - Cardiovascular Rhythm: regular Heart Sounds: Present: S1 & S2 Extremities: No edema - Gastrointestinal General gastrointestinal: Present: soft, tender (Mildly tender across lower abdomen, no guarding or rigidity) Rectal Exam: deferred - Genitourinary Female genitourinary: deferred - Musculoskeletal Musculoskeletal: strength equal bilaterally - Neurologic Neurologic: no focal deficits, moves all extremities - Psychiatric Psychiatric: appropriate mood/affect - Labs CBC & Chem 7: 01/08/21 05:51 01/08/21 05:51 Labs: Abnormal lab results 01/07/21 01/07/21 01/07/21 Range/Units 18:41 18:41 18:41 WBC 18.3 H (4.5-11.0) K/mm3 RBC 5.06 H (3.65-5.03) M/mm3 Hgb 14.8 H (10.1-14.3) gm/dl Hct 44.7 H (30.3-42.9) % RDW (13.2-15.2) % Seg Neutrophils % (40.0-70.0) % Seg Neuts % (Manual) 84.0 H (40.0-70.0) % Lymphocytes % (Manual) 5.0 L (13.4-35.0) % Monocytes % (Manual) 10.0 H (0.0-7.3) % Seg Neutrophils # (1.8-7.7) K/mm3 Seg Neutrophils # Man 15.4 H (1.8-7.7) K/mm3 Lymphocytes # (Manual) 0.9 L (1.2-5.4) K/mm3 Monocytes # (Manual) 1.8 H (0.0-0.8) K/mm3 Sodium 135 L (137-145) mmol/L Chloride (98-107) mmol/L Glucose 173 H (65-100) mg/dL POC Glucose (70-105) mg/dL Lactic Acid 2.20 H* (0.7-2.0) mmol/L Calcium (8.4-10.2) mg/dL 01/08/21 01/08/21 01/08/21 Range/Units 00:05 05:51 05:51 WBC 11.7 H (4.5-11.0) K/mm3 RBC (3.65-5.03) M/mm3 Hgb (10.1-14.3) gm/dl Hct (30.3-42.9) % RDW 13.1 L (13.2-15.2) % Seg Neutrophils % 72.5 H (40.0-70.0) % Seg Neuts % (Manual) (40.0-70.0) % Lymphocytes % (Manual) (13.4-35.0) % Monocytes % (Manual) (0.0-7.3) % Seg Neutrophils # 8.5 H (1.8-7.7) K/mm3 Seg Neutrophils # Man (1.8-7.7) K/mm3 Lymphocytes # (Manual) (1.2-5.4) K/mm3 Monocytes # (Manual) (0.0-0.8) K/mm3 Sodium (137-145) mmol/L Chloride 109.3 H (98-107) mmol/L Glucose 115 H (65-100) mg/dL POC Glucose 127 H (70-105) mg/dL Lactic Acid (0.7-2.0) mmol/L Calcium 7.8 L (8.4-10.2) mg/dL 01/08/21 Range/Units 11:17 WBC (4.5-11.0) K/mm3 RBC (3.65-5.03) M/mm3 Hgb (10.1-14.3) gm/dl Hct (30.3-42.9) % RDW (13.2-15.2) % Seg Neutrophils % (40.0-70.0) % Seg Neuts % (Manual) (40.0-70.0) % Lymphocytes % (Manual) (13.4-35.0) % Monocytes % (Manual) (0.0-7.3) % Seg Neutrophils # (1.8-7.7) K/mm3 Seg Neutrophils # Man (1.8-7.7) K/mm3 Lymphocytes # (Manual) (1.2-5.4) K/mm3 Monocytes # (Manual) (0.0-0.8) K/mm3 Sodium (137-145) mmol/L Chloride (98-107) mmol/L Glucose (65-100) mg/dL POC Glucose 164 H (70-105) mg/dL Lactic Acid (0.7-2.0) mmol/L Calcium (8.4-10.2) mg/dL
[2021-01-08] MEDS ORDERED: POLYETHYLENE GLYCOL/ELECT SOLN 4000 ML PO ONE (12:00)
[2021-01-09] MEDS: INSULIN LISPRO 100 UNIT/ML SUB-Q SCH (00:46)
[2021-01-09] MEDS: IPRATROPIUM/ALBUTEROL SULFATE 3 ML AMPUL.NEB IH SCH ×3 (03:22→14:32)
[2021-01-09] MEDS: SODIUM CHLORIDE 0.9% 1000 ML 1,000 ML IV SCH (06:05)
[2021-01-09 06:24] LABS: Hemoglobin 11.3 gm/dl (10.1-14.3); Mean Corpuscular HGB Conc 33 % (30-34); Mean Corpuscular Volume 88 fl (79-97); Platelet Count 252 K/mm3 (140-440); Red Blood Count 3.86 M/mm3 (3.65-5.03); Red Cell Distribution Width 13.4 % (13.2-15.2)
[2021-01-09 07:43] LABS: Blood Urea Nitrogen 7 mg/dL (7-17); Calcium 8.2 mg/dL (8.4-10.2); Hemolysis Index 4
[2021-01-09 08:01] LABS: BUN/Creatinine Ratio 10
[2021-01-09] MEDS: PANTOPRAZOLE 40 MG TAB PO SCH ×2 (10:17→12:05)
--- NOTE | 2021-01-09 10:31 | Electrocardiograph Report ---
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
[2021-01-09 12:07] VITALS: BP 121/54
--- NOTE | 2021-01-09 16:00 | Discharge Summary ---
Providers - Providers Date of Admission: 01/08/21 12:03 Date of discharge: 01/09/21 Attending physician: SIOBHAN CHU 01/07/21 22:37 Consult to Physician [CONS] Urgent Comment: Consulting Provider: HIWOT THOMAS Physician Instructions: Reason For Exam: fecal impaction, sterocolitis, hx of gi bleed 01/07/21 23:59 Consult to Dietitian/Nutrition [CONS] Routine Physician Instructions: Reason For Exam: Reason for Consult: Diet education 01/09/21 10:55 Physical Therapy Evaluation and Treat [CONS] Routine Comment: Reason For Exam: Debility Primary care physician: OCEAN FORWARDER Hospitalization Condition: Good Hospital course: 70-year-old Laotian speaking female with past medical history of GERD depression diabetes and history of colonoscopy on December 22 was brought to the emergency room with a complaint of abdominal pressure, intermittent bloody brown stool, diarrhea, sensation of constipation, not having a good bowel movement for 1 day, abdominal distention. In the emergency room patient WBC is 18.3. Hemoglobin 14.8 and hematocrit 44.7, lactic acid is 2.20. CT scan of the abdomen showed fecal impaction stercoral colitis. Patient was placed on stool softener and GoLYTELY. Patient did have couple good bowel movement and she was feeling better. Patient was initially placed on IV antibiotics then discontinued. Patient remained afebrile. WBC count and H&H remained stable. Patient was then discharged home in stable condition with outpatient follow-up. Discharge planning management was thoroughly discussed with the patient daughter at the bedside and with the patient. They both verbalized understanding. Disposition: - TO HOME OR SELFCARE Final Discharge Diagnosis (Prints w/discharge instructions): --Stercoral colitis/fecal impaction. --Rectal bleed, Likely secondary to stool impaction, H&H stable. --Leukocytosis, Likely reactive : WBC count dropped from 18.3-11.7, No evidence of infection. --Type 2 diabetes diet-controlled Time spent for discharge: 40 minutes Core Measure Documentation - Palliative Care Palliative Care/ Comfort Measures: Not Applicable - Core Measures Any of the following diagnoses?: none Exam - Physical Exam Narrative exam: General appearance: Present: no acute distress, well-nourished - EENT Eyes: PERRL, EOM intact ENT: hearing intact - Neck Neck: supple, normal ROM, no masses or JVD - Respiratory Respiratory effort: normal Respiratory: bilateral: CTA - Cardiovascular Rhythm: regular Heart Sounds: Present: S1 & S2 Extremities: No edema - Gastrointestinal General gastrointestinal: Present: soft, Rectal Exam: deferred - Genitourinary Female genitourinary: deferred - Musculoskeletal Musculoskeletal: strength equal bilaterally - Neurologic Neurologic: no focal deficits, moves all extremities - Psychiatric Psychiatric: appropriate mood/affect - Constitutional Vitals: Temp Pulse Resp BP Pulse Ox 97.4 F L 88 18 121/54 98 01/09/21 12:06 01/09/21 14:33 01/09/21 14:33 01/09/21 12:06 01/09/21 12:06 Plan Activity: advance as tolerated Weight Bearing Status: Weight Bear as Tolerated Diet: advance as tolerated Follow up with: PRIMARY CARE, [Primary Care Provider] - 3-5 Days ROCIO SANTILLAN MD [Staff Physician] - 7 Days Prescriptions: Docusate Sodium [Colace] 100 mg PO BID #30 capsule polyethylene glycoL 3350 [Miralax 3350] 17 gm PO QDAY #14 packet Pantoprazole [Protonix TAB] 40 mg PO QDAC #30 tablet
== END 2021-01-09 17:22 | disposition home or self-care (01) | DRG 389 ==
LOC: ED 17:09 → 4A 22:49 → OBSVTOIN 01-08 12:03
PROVIDERS: ADMIT Hospitalist; ATTEND Internal Medicine
DX: K56.41 Fecal impaction (principal); R65.10 Systemic inflammatory response syndrome (SIRS) of non-infectious origin without acute organ dysfunction; K52.89 Other specified noninfective gastroenteritis and colitis; K21.9 Gastro-esophageal reflux disease without esophagitis; E11.9 Type 2 diabetes mellitus without complications; F32.9 Major depressive disorder, single episode, unspecified; F41.9 Anxiety disorder, unspecified; Z87.19 Personal history of other diseases of the digestive system
CPT/HCPCS: 36415; 71046; 71250; 74176; 80048; 80076; 81001; 82140; 82962; 83690; 85007; 85025; 85027; 85610; 87040; 93005; 94640; 96365; G0378; C9113; J1815; J2270; J2405; J2543; J7030